=== PATIENT | male | born 1975 | race Caucasian/White ===

== ENCOUNTER 2017-01-12 18:20 | Emergency (ER) | payer OTHER ==
[~2017-01-12] VITALS: Ht 185.4 cm; Wt 100.0 kg
[~2017-01-12 18:20] MED LIST: MONT10TA6 PO
[2017-01-12 18:27] VITALS: BP 120/81
[2017-01-12] MEDS ORDERED: SODIUM CHLORIDE 0.9% 1,000ML IVBOLUS ONE (19:00)
[2017-01-12] MEDS ORDERED: SODIUM CHLORIDE FLUSH 10ML SYR IVF ONE (19:00)
[2017-01-12 19:04] LABS: HEMOGLOBIN 16.6 g/dL (13.7-18.0)
[2017-01-12 19:21] LABS: BLOOD UREA NITROGEN 10 mg/dL (7-18)
[2017-01-12 19:24] LABS: ASPARTATE AMINO TRANSFERASE 12 U/L (15-37)
[2017-01-12] MEDS ORDERED: MAALOX/HYOSCYAMINE/LIDOCAINE 45 ML BOTTLE PO ONE (19:30)
[2017-01-12] MEDS ORDERED: FLUT1DIS IH (19:50)
[2017-01-12] MEDS ORDERED: MAALOX/HYOSCYAMINE/LIDOCAINE 45 ML BOTTLE ONE (21:13)
== END 2017-01-12 21:37 | disposition home or self-care (01) ==
LOC: ED 19:58
DX: R19.7 Diarrhea, unspecified (principal); R10.84 Generalized abdominal pain; G43.909 Migraine, unspecified, not intractable, without status migrainosus; J45.909 Unspecified asthma, uncomplicated
CPT/HCPCS: 36415; 74020; 80053; 81003; 83690; 85025; 87046; 87324; 87328; 87329; 87491; 87591; 87899; 89055

== ENCOUNTER 2019-01-13 20:39 | Emergency (ER) | payer OTHER ==
[~2019-01-13] VITALS: Ht 185.4 cm; Wt 107.0 kg
[~2019-01-13 20:39] MED LIST changes: +FLUT1DIS IH
[2019-01-13 21:08] LABS: BASOPHILS # (AUTO) 0.05 x10^3/uL (0-0.1); BASOPHILS % (AUTO) 1 % (0-1); EOSINOPHILS # (AUTO) 0.19 x10^3/uL (0-0.4); EOSINOPHILS % (AUTO) 3 % (1-7); LYMPHOCYTES # (AUTO) 0.99 x10^3/uL (1-3.4); LYMPHOCYTES % (AUTO) 14 % (22-44); MD NO; MEAN CORPUSCULAR HEMOGLOBIN 31.6 pg (27.5-34.5); MEAN CORPUSCULAR HGB CONC 34.1 g/dL (33.2-36.2); MEAN CORPUSCULAR VOLUME 92.5 fL (81-97); MEAN PLATELET VOLUME 9.4 fL (7.4-10.4); MONOCYTES # (AUTO) 0.76 x10^3/uL (0.2-0.8); MONOCYTES % (AUTO) 10 % (2-9); NEUTROPHILS # (AUTO) 5.31 x10^3/uL (1.8-6.8); NEUTROPHILS % (AUTO) 73 % (42-75); PLATELET COUNT 163 x10^3/uL (130-400); RED BLOOD COUNT 5.16 x10^6/uL (4.38-5.82)
[2019-01-13 21:19] LABS: ALANINE AMINOTRANSFERASE 25 U/L (12-78); ALBUMIN 3.7 g/dL (3.4-5.0); ANION GAP 6 mmol/L (5-15); CALCIUM 8.6 mg/dL (8.5-10.1); CHLORIDE 107 mmol/L (98-107); CREATININE 1.14 mg/dL (0.7-1.3)
[2019-01-13 21:21] LABS: ALKALINE PHOSPHATASE 57 U/L (45-117); BILIRUBIN,TOTAL 0.5 mg/dL (0.2-1.0); TOTAL PROTEIN 7.1 g/dL (6.4-8.2)
--- NOTE | 2019-01-13 22:04 | NUR ---
Pt educated on obtainig a stool sample. States he will try shortly.
--- NOTE | 2019-01-13 22:31 | NUR ---
Pt again encouraged to attempt for stool sample, states unable to go at this time
--- NOTE | 2019-01-13 22:59 | NUR ---
Formed stool sample obtained, MD aware, per MD, no stool to be sent to lab. Will recheck pt.
[2019-01-13 23:00] VITALS: BP 131/72
== END 2019-01-13 23:17 | disposition home or self-care (01) ==
LOC: ED 23:11
DX: R10.84 Generalized abdominal pain (principal); R11.0 Nausea; G43.909 Migraine, unspecified, not intractable, without status migrainosus
CPT/HCPCS: 36415; 80053; 85025; 99283